=== PATIENT | male | born 1985 | race Caucasian/White ===

== ENCOUNTER 2017-07-22 06:16 | Emergency (ER) | payer OTHER ==
[~2017-07-22] VITALS: Ht 190.5 cm; Wt 99.8 kg
[2017-07-22] MEDS ORDERED: TRAMADOL HCL50 MG PO (06:52)
[2017-07-22] MEDS ORDERED: CRUTCH1 EACH MISC (06:54)
== END 2017-07-22 07:25 | disposition home or self-care (01) ==
LOC: ED 06:16
DX: S93.402A Sprain of unspecified ligament of left ankle, initial encounter (principal); F17.200 Nicotine dependence, unspecified, uncomplicated; X50.9XXA Other and unspecified overexertion or strenuous movements or postures, initial encounter
CPT/HCPCS: 73610; 99283